=== PATIENT | male | born 1990 | race Caucasian/White ===

== ENCOUNTER 2019-12-14 01:44 | Emergency (ER) | payer SELFPAY ==
[2019-12-14] MEDS ORDERED: Alum Hydroxide/Mag Hydroxide 15 ML, Lidocaine 2% 15 ML PO ONE ×2 (02:18)
[2019-12-14] MEDS ORDERED: LORazepam 1 MG Tab PO STA (02:19)
--- NOTE | 2019-12-14 03:22 | EDM.PDOC ---
ED HPI GENERAL MEDICAL PROBLEM - General Chief Complaint: Behavioral/Psych Stated Complaint: TINLING IN ARMS, LEGS, DIZZY Time Seen by Provider: 12/14/19 02:10 Source of Information: Reports: Patient History Limitations: Reports: No Limitations - History of Present Illness INITIAL COMMENTS - FREE TEXT/NARRATIVE: woke from sleep feeling tightness in the chest, not able to breath , initially seemed to go away but then return then he noted he had weakness and tingling in the left arm and legs that is worsening , able to move both upper and lower extremities states he feels a flutter in his chest no fever or chills has dry cough has history of GERD but states this pain is not similar to that one Onset: Sudden Onset Date: 12/14/19 Duration: Hour(s):. No: Getting Worse Location: Reports: Chest, Upper Extremity, Left, Lower Extremity, Left. Denies : Radiates to Quality: Reports: Burning Severity: Moderate Improves with: Reports: Rest Worsens with: Reports: Movement Context: Reports: Other Associated Symptoms: Reports: Chest Pain - Related Data Allergies Allergy/AdvReac Type Severity Reaction Status Date / Time No Known Allergies Allergy Verified 12/14/19 01:56 Home Meds: Home Meds LORazepam [Ativan] 0.5 mg PO ACDINNER PRN #6 tablet 12/14/19 [Rx] Omeprazole 20 mg PO ACBREAKFAST #30 cap.sr 12/14/19 [Rx] Omeprazole 20 mg PO DAILY 12/14/19 [History] Past Medical History Gastrointestinal History: Reports: GERD, Hiatal Hernia Musculoskeletal History: Reports: Fracture Other Musculoskeletal History: hx fx fingers bilat hands Neurological History: Reports: Concussion Psychiatric History: Reports: Anxiety, Panic Attack Endocrine/Metabolic History: Reports: Obesity/BMI 30+, Other (See Below) Other Endocrine/Metabolic History: low blood sugar Dermatologic History: Reports: Other (See Below) Other Dermatologic History: hx MRSA - Infectious Disease History Infectious Disease History: Reports: Chicken Pox, MRSA - Past Surgical History HEENT Surgical History: Reports: Oral Surgery GI Surgical History: Reports: Colonoscopy, EGD Endocrine Surgical History: Reports: None Musculoskeletal Surgical History: Reports: None Social & Family History - Family History Family Medical History: Noncontributory - Tobacco Use Smoking Status *Q: Current Every Day Smoker Years of Tobacco use: 10 Packs/Tins Daily: 0.5 - Caffeine Use Caffeine Use: Reports: Coffee, Soda - Recreational Drug Use Recreational Drug Use: Yes Recreational Drug Type: Reports: Marijuana/Hashish Recreational Drug Use Frequency: Weekly ED ROS GENERAL - Review of Systems Review Of Systems: See Below Constitutional: Denies: Fever, Chills, Malaise HEENT: Denies: Sinus Problem, Throat Pain, Throat Swelling, Vertigo, Vision Change Respiratory: Reports: Cough. Denies: Shortness of Breath, Wheezing, Pleuritic Chest Pain, Sputum Cardiovascular: Reports: Chest Pain, Palpitations Endocrine: Reports: Fatigue GI/Abdominal: Reports: No Symptoms : Reports: No Symptoms Musculoskeletal: Reports: Arm Pain (left glen), Leg Pain Skin: Reports: No Symptoms Neurological: Reports: Dizziness, Numbness, Paresthesia. Denies: Confusion, Headache, Pre-Existing Deficit, Seizure Psychiatric: Reports: Anxiety Hematologic/Lymphatic: Reports: No Symptoms Immunologic: Reports: No Symptoms ED EXAM, NEURO - Physical Exam Exam: See Below Exam Limited By: No Limitations General Appearance: Alert, WD/WN, No Apparent Distress Eye Exam: Bilateral Eye: EOMI Ears: Normal External Exam Nose: Normal Inspection Throat/Mouth: Normal Inspection Head Exam: Atraumatic, Normocephalic. No: Facial Swelling, Facial Tenderness Neck: Supple, Non-Tender Respiratory/Chest: Lungs Clear, Normal Breath Sounds Cardiovascular: Normal Peripheral Pulses, Regular Rate, Rhythm GI/Abdominal: Normal Bowel Sounds, Soft, Non-Tender DTR: 2+: Patella (R), Patella (L) Back Exam: Normal Inspection, Full Range of Motion. No: CVA Tenderness (R), CVA Tenderness (L) Extremities: Normal Inspection Psychiatric: Anxious Skin Exam: Warm *Q Meaningful Use (ADM) - VTE *Q VTE Mechanical Contraindications *Q: Further Opinion Sought VTE Pharmacological Contraindications *Q: Not Candidate LT Anticoag VTE Anticoagulation Contraindications: Med/TX Not Indicated/Need - VTE Risk Assess *Q Each Risk Factor Represents 1 Point: None Total Score 1 Point Risk Factors: 0 Each Risk Factor Represents 2 Points: None Total Score 2 Point Risk Factors: 0 Each Risk Factor Represents 3 Points: None Total Score 3 Point Risk Factors: 0 Each Risk Factor Represents 5 Points: None Total Score 5 Point Risk Factors: 0 Venous Thromboembolism Risk Factor Score *Q: 0 - Stroke *Q Aspirin Contraindications Stroke *Q: Other (Use Special Inst) Anticoagulation Contraindications Stroke *Q: Med/TX Not Indicated/Need Antithrombotic Contraindications Stroke *Q: Med/TX Not Indicated/Need Thrombolytic/Fibrinolytic Contraindications Stroke *Q: Med/TX Not Indicated/Need Statin Contraindications Stroke *Q: Med/TX Not Indicated/Need Rehabilitation Assessment Contraindication *Q: Med/tx not indicated/need - AMI *Q Aspirin Contraindications AMI *Q: Med/TX Not Indicated/Need Thrombolytic/Fibrinolytic Contraindications IV (AMI) *Q: Med/tx not indicated/ need Statin Contraindications AMI *Q: Med/TX Not Indicated/Need Course - Vital Signs Last Recorded V/S: Last Vital Signs Temp 36.3 C 12/14/19 01:44 Pulse 82 12/14/19 04:08 Resp 18 12/14/19 04:08 BP 138/73 12/14/19 04:08 Pulse Ox 100 12/14/19 04:08 - Orders/Labs/Meds Orders: Active Orders 24 hr Category Date Time Status EKG Documentation Completion [RC] ASDIRECTED Care 12/14/19 02:11 Active Head wo Cont [CT] Stat Exams 12/14/19 03:16 Taken EKG 12 Lead [EK] Routine Ther 12/14/19 02:11 Ordered Meds: Medications Discontinued Medications Generic Name Dose Route Start Last Admin Trade Name Sethq PRN Reason Stop Dose Admin Al Hydroxide/Mg Hydroxide 15 0 ml 12/14/19 02:18 12/14/19 02:31 ml/ Lidocaine HCl 15 ml PO 12/14/19 02:19 30 ml ONETIME ONE Administration Lorazepam 1 mg 12/14/19 02:19 12/14/19 02:31 Ativan PO 12/14/19 02:20 1 mg NOW STA Administration - Re-Assessments/Exams Free Text/Narrative Re-Assessment/Exam: 12/14/19 04:09 pt given Ativan and symptoms gradually subsided He did acknowledge he could have had a panic attack Ct head done was negative EKG done is negative 12/14/19 04:22 Departure - Departure Time of Disposition: 04:20 Disposition: Home, Self-Care 01 Condition: Fair Clinical Impression: MIRIAN (generalized anxiety disorder), Generalized anxiety disorder with panic attacks - Discharge Information *PRESCRIPTION DRUG MONITORING PROGRAM REVIEWED*: Not Applicable *COPY OF PRESCRIPTION DRUG MONITORING REPORT IN PATIENT CADENCE: Not Applicable Prescriptions: LORazepam [Ativan] 0.5 mg PO ACDINNER PRN #6 tablet PRN Reason: Anxiety Omeprazole 20 mg PO ACBREAKFAST #30 cap.sr Instructions: Generalized Anxiety Disorder, Adult, Lorazepam tablets, Living With Anxiety Referrals: Marlon Wasserman [Primary Care Provider] - Forms: ED Department Discharge Additional Instructions: 1) make appointment to follow up with your PCP , You will need treatment for anxiety 2) Increase fluid intake 3) Avoid caffeinated drinks, stress 4) Call with any concerns Sepsis Event Note - Evaluation Sepsis Screening Result: No Definite Risk - Focused Exam Vital Signs: Vital Signs Temp Pulse Resp BP Pulse Ox 12/14/19 04:08 82 18 138/73 100 12/14/19 02:55 95 18 139/83 100 12/14/19 01:44 36.3 C 104 H 24 H 152/92 H 100 Date Exam was Performed: 12/14/19 Time Exam was Performed: 04:24 - My Orders Last 24 Hours: My Active Orders 12/14/19 02:11 EKG Documentation Completion [RC] ASDIRECTED EKG 12 Lead [EK] Routine 12/14/19 03:16 Head wo Cont [CT] Stat - Assessment/Plan Last 24 Hours: My Active Orders 12/14/19 02:11 EKG Documentation Completion [RC] ASDIRECTED EKG 12 Lead [EK] Routine 12/14/19 03:16 Head wo Cont [CT] Stat
== END 2019-12-14 04:22 | disposition home or self-care (01) ==
LOC: FB.ED 01:44
DX: F41.1 Generalized anxiety disorder (principal); F41.0 Panic disorder [episodic paroxysmal anxiety]; K21.9 Gastro-esophageal reflux disease without esophagitis; E66.9 Obesity, unspecified; F17.210 Nicotine dependence, cigarettes, uncomplicated; Z68.34 Body mass index [BMI] 34.0-34.9, adult; Z79.899 Other long term (current) drug therapy
CPT/HCPCS: 70450; 93005; 99285; A9270; 99283